=== PATIENT | female | born 1990 | race African-American/Black ===

== ENCOUNTER 2016-08-10 10:43 | Emergency (ER) | payer OTHER ==
[~2016-08-10] VITALS: Wt 81.6 kg
[~2016-08-10 10:43] MED LIST: ACYCLOVIR800 MG PO; ANAPROX DS550 MG PO; ATIVAN0.5 MG PO; AUGMENTIN 875875 MG PO; BIRTH CONTROL1 EACH; EXCEDRIN MIGRAI1 TA1 PO; IBU-6600 MG PO; IMITREX100 MG PO; KEFLEX500 MG PO; MOTRIN800 MG PO; PERCOCET 325 MG1 TA2 PO; ROBAXIN750 MG PO; VIBRAMYCIN100 MG PO; VICODIN 5/500 505 MG PO; ZOFRAN ODT4 MG SL
[2016-08-10] MEDS ORDERED: VISTARIL25 M2 PO (11:40)
== END 2016-08-10 11:44 | disposition home or self-care (01) ==
LOC: ED 10:43
DX: F41.9 Anxiety disorder, unspecified (principal); F17.200 Nicotine dependence, unspecified, uncomplicated; Z88.8 Allergy status to other drugs, medicaments and biological substances

== ENCOUNTER 2016-09-12 16:04 | Emergency (ER) | payer SELFPAY ==
[~2016-09-12 16:04] MED LIST changes: +VISTARIL25 M2 PO
[2016-09-12] MEDS ORDERED: Motrin,Rufen800 MG PO (17:43)
[2016-09-12] MEDS ORDERED: HYDROCODONE BIT1 T11 PO (17:43)
== END 2016-09-12 17:33 | disposition home or self-care (01) ==
LOC: ED 16:04
DX: S22.32XA Fracture of one rib, left side, initial encounter for closed fracture (principal); F17.200 Nicotine dependence, unspecified, uncomplicated; Z88.8 Allergy status to other drugs, medicaments and biological substances; Y08.89XA Assault by other specified means, initial encounter; Y93.89 Activity, other specified; Y92.9 Unspecified place or not applicable; Y99.9 Unspecified external cause status

== ENCOUNTER 2016-09-14 11:00 | Emergency (ER) | payer SELFPAY ==
[~2016-09-14] VITALS: Wt 80.7 kg
[~2016-09-14 11:00] MED LIST changes: +HYDROCODONE BIT1 T11 PO; +Motrin,Rufen800 MG PO
[2016-09-14] MEDS ORDERED: ULTRAM50 MG PO (12:13)
== END 2016-09-14 13:56 | disposition home or self-care (01) ==
LOC: ED 11:00
DX: S22.32XD Fracture of one rib, left side, subsequent encounter for fracture with routine healing (principal); G89.29 Other chronic pain; F17.200 Nicotine dependence, unspecified, uncomplicated; Z88.8 Allergy status to other drugs, medicaments and biological substances; X58.XXXD Exposure to other specified factors, subsequent encounter

== ENCOUNTER 2016-10-16 08:49 | Emergency (ER) | payer OTHER ==
[~2016-10-16] VITALS: Ht 170.1 cm; Wt 80.7 kg
[~2016-10-16 08:49] MED LIST changes: +ULTRAM50 MG PO
[2016-10-16 09:22] LABS: BILIRUBIN NEGATIVE (NEGATIVE); BLOOD TRACE-INTACT (NEGATIVE); CLARITY SL CLOUDY (CLEAR); COLOR YELLOW (YELLOW); GLUCOSE NEGATIVE (NEGATIVE); KETONE NEGATIVE (NEGATIVE); LEUKO ESTERASE TRACE (NEGATIVE); NITRITE NEGATIVE (NEGATIVE); PH 7.5 (5.0-9.0); PROTEIN NEGATIVE (NEGATIVE); SPECIFIC GRAVITY <= 1.005 (1.005-1.030); UROBILINOGEN 0.2 E.U./dl (0.2-1.0)
[2016-10-16 09:29] LABS: BACTERIA TRACE; URINE REFLEX COMMENT YES (NO)
[2016-10-16] MEDS ORDERED: DIFLUCAN150 MG PO (09:40)
[2016-10-16] MEDS ORDERED: BACTRIM DS 8001 TA1 PO (09:40)
== END 2016-10-16 09:52 | disposition home or self-care (01) ==
LOC: ED 08:49
PROVIDERS: Nurse Practitioner Family
DX: N39.0 Urinary tract infection, site not specified (principal); R31.9 Hematuria, unspecified; R03.0 Elevated blood-pressure reading, without diagnosis of hypertension; F17.200 Nicotine dependence, unspecified, uncomplicated; Z91.048 Other nonmedicinal substance allergy status

== ENCOUNTER 2017-03-23 21:29 | Emergency (ER) | payer OTHER ==
[~2017-03-23] VITALS: Ht 170.1 cm; Wt 71.2 kg
[~2017-03-23 21:29] MED LIST changes: +BACTRIM DS 8001 TA1 PO; +DIFLUCAN150 MG PO
[2017-03-23 22:18] LABS: BILIRUBIN NEGATIVE (NEGATIVE); BLOOD 2+ (NEGATIVE); CLARITY SL CLOUDY (CLEAR); COLOR YELLOW (YELLOW); GLUCOSE NEGATIVE (NEGATIVE); KETONE TRACE (NEGATIVE); LEUKO ESTERASE NEGATIVE (NEGATIVE); NITRITE NEGATIVE (NEGATIVE); PH 5.5 (5.0-9.0); SPECIFIC GRAVITY >= 1.030 (1.005-1.030); UROBILINOGEN 0.2 E.U./dl (0.2-1.0)
[2017-03-23 22:22] LABS: BASO % 0.4 % (0.0-1.0); EOS # 0.2 10*3/uL (0.0-0.4); EOS % 1.7 % (1.0-4.0); HEMATOCRIT 45.2 % (37.0-47.0); HEMOGLOBIN 15.6 g/dl (12.0-16.0); LYMPH # 3.7 10*3/uL (1.3-4.4); LYMPH % 34.8 % (27.0-41.0); MEAN CELL VOLUME 88.1 fl (81.0-99.0); MEAN CORPUSCULAR HGB 30.4 pg (27.0-31.0); MEAN CORPUSCULAR HGB CONC 34.5 g/dl (33.0-37.0); MEAN PLATELET VOLUME 9.1 fl (9.6-12.3); MONO # 0.9 10*3/uL (0.1-1.0); MONO % 8.7 % (3.0-9.0); NEUT # 5.8 10*3/uL (2.3-7.9); PLATELET COUNT AUTOMATED 233 10*3/uL (130-400); RED BLOOD COUNT 5.13 10*6/uL (4.10-5.10); RED CELL DISTRI WIDTH 12.7 % (0-14.5); WHITE BLOOD COUNT 10.7 10*3/uL (4.8-10.8)
[2017-03-23 22:24] LABS: BACTERIA TRACE; MUCOUS 2+
[2017-03-23 22:26] LABS: RBC 16-20 rbc/hpf (0-2)
[2017-03-23 22:40] LABS: ALKALINE PHOSPHATASE 99 U/L (45-117); BUN 12 mg/dl (7-24); CHLORIDE 106 mmol/L (98-107); CREATININE 0.81 mg/dL (0.55-1.02); LIPASE 179 U/L (73-393); POTASSIUM 3.9 mmol/L (3.5-5.1); SGOT/AST 6 IU/L (3-35); SGPT/ALT 14 U/L (12-78); SODIUM 141 mmol/L (136-145); TOTAL PROTEIN 7.8 gm/dL (6.4-8.2)
[2017-03-23] MEDS ORDERED: ZOFRAN ODT4 MG SL (23:01)
== END 2017-03-24 00:48 | disposition home or self-care (01) ==
LOC: ED 21:29
PROVIDERS: Nurse Practitioner Family
DX: R10.13 Epigastric pain (principal); Z88.8 Allergy status to other drugs, medicaments and biological substances

== ENCOUNTER 2017-04-05 22:02 | Emergency (ER) | payer OTHER ==
[~2017-04-05] VITALS: Ht 170.1 cm; Wt 71.7 kg
== END 2017-04-05 23:15 | disposition home or self-care (01) ==
LOC: ED 22:02
DX: R07.81 Pleurodynia (principal); F17.200 Nicotine dependence, unspecified, uncomplicated; Z79.899 Other long term (current) drug therapy; Z88.8 Allergy status to other drugs, medicaments and biological substances; Y08.89XA Assault by other specified means, initial encounter; Y93.89 Activity, other specified; Y92.89 Other specified places as the place of occurrence of the external cause; Y99.9 Unspecified external cause status

== ENCOUNTER 2017-10-19 17:30 | Emergency (ER) | payer OTHER ==
[~2017-10-19] VITALS: Ht 167.6 cm; Wt 72.6 kg
[2017-10-19] MEDS ORDERED: NAPROSYN500 MG PO (19:12)
[2017-10-19] MEDS ORDERED: CYCLOBENZAPRINE10 MG PO (19:12)
[2017-10-19] MEDS ORDERED: MEDROL DOSEPAK4 MG PO (19:12)
== END 2017-10-19 19:22 | disposition home or self-care (01) ==
LOC: ED 17:30
DX: S16.1XXA Strain of muscle, fascia and tendon at neck level, initial encounter (principal); Z88.8 Allergy status to other drugs, medicaments and biological substances; V89.2XXA Person injured in unspecified motor-vehicle accident, traffic, initial encounter; Y93.89 Activity, other specified; Y92.410 Unspecified street and highway as the place of occurrence of the external cause; Y99.8 Other external cause status

== ENCOUNTER 2017-12-12 20:30 | Emergency (ER) | payer OTHER ==
[~2017-12-12] VITALS: Ht 170.1 cm; Wt 68.9 kg
[~2017-12-12 20:30] MED LIST changes: +CYCLOBENZAPRINE10 MG PO; +MEDROL DOSEPAK4 MG PO; +NAPROSYN500 MG PO
[2017-12-12] MEDS ORDERED: PRENATAL ONE D1 EACH PO (20:39)
== END 2017-12-12 20:45 | disposition home or self-care (01) ==
LOC: ED 20:30
DX: Z32.01 Encounter for pregnancy test, result positive (principal); F17.200 Nicotine dependence, unspecified, uncomplicated

== ENCOUNTER 2018-01-05 11:31 | Emergency (ER) | payer OTHER ==
[~2018-01-05] VITALS: Ht 170.1 cm; Wt 70.3 kg
[~2018-01-05 11:31] MED LIST changes: +PRENATAL ONE D1 EACH PO
[2018-01-05 12:15] LABS: BILIRUBIN NEGATIVE (NEGATIVE); BLOOD NEGATIVE (NEGATIVE); CLARITY CLEAR (CLEAR); COLOR YELLOW (YELLOW); GLUCOSE NEGATIVE (NEGATIVE); KETONE NEGATIVE (NEGATIVE); UROBILINOGEN 0.2 E.U./dl (0.2-1.0)
[2018-01-05 12:16] LABS: LEUKO ESTERASE NEGATIVE (NEGATIVE); NITRITE NEGATIVE (NEGATIVE)
[2018-01-05 12:17] LABS: BASO % 0.4 % (0.0-1.0); EOS # 0.1 10*3/uL (0.0-0.4); HEMOGLOBIN 15.1 g/dl (12.0-16.0); LYMPH # 2.6 10*3/uL (1.3-4.4); MEAN CELL VOLUME 87.5 fl (81.0-99.0); MEAN CORPUSCULAR HGB CONC 34.3 g/dl (33.0-37.0); MEAN PLATELET VOLUME 8.8 fl (9.6-12.3); MONO # 0.5 10*3/uL (0.1-1.0); MONO % 6.7 % (3.0-9.0); NEUT % 55.6 % (47.0-73.0); PLATELET COUNT AUTOMATED 207 10*3/uL (130-400); RED BLOOD COUNT 5.03 10*6/uL (4.10-5.10); RED CELL DISTRI WIDTH 12.3 % (0-14.5); WHITE BLOOD COUNT 7.2 10*3/uL (4.8-10.8)
[2018-01-05 12:20] LABS: BACTERIA TRACE
[2018-01-05 12:33] LABS: ALBUMIN 3.6 gm/dl (3.1-4.5); ALKALINE PHOSPHATASE 73 U/L (45-117); BUN 5 mg/dl (7-24); CHLORIDE 106 mmol/L (98-107); CREATININE 0.58 mg/dL (0.55-1.02); POTASSIUM 4.3 mmol/L (3.5-5.1); SGOT/AST 10 IU/L (3-35); SGPT/ALT 16 U/L (12-78); SODIUM 140 mmol/L (136-145); TOTAL PROTEIN 7.5 gm/dL (6.4-8.2)
== END 2018-01-05 13:43 | disposition home or self-care (01) ==
LOC: ED 11:31
PROVIDERS: Nurse Practitioner Family
DX: O26.891 Other specified pregnancy related conditions, first trimester (principal); O99.331 Smoking (tobacco) complicating pregnancy, first trimester; R10.32 Left lower quadrant pain; Z91.048 Other nonmedicinal substance allergy status; Z79.899 Other long term (current) drug therapy; Z3A.01 Less than 8 weeks gestation of pregnancy

== ENCOUNTER 2018-03-13 15:28 | Emergency (ER) | payer OTHER ==
[~2018-03-13] VITALS: Ht 170.1 cm; Wt 74.4 kg
[2018-03-13 15:54] LABS: BILIRUBIN NEGATIVE (NEGATIVE); BLOOD 1+ (NEGATIVE); CLARITY SL CLOUDY (CLEAR); COLOR YELLOW (YELLOW); GLUCOSE NEGATIVE (NEGATIVE); KETONE TRACE (NEGATIVE); LEUKO ESTERASE NEGATIVE (NEGATIVE); NITRITE NEGATIVE (NEGATIVE); PH 5.5 (5.0-9.0); SPECIFIC GRAVITY >= 1.030 (1.005-1.030); UROBILINOGEN 0.2 E.U./dl (0.2-1.0)
[2018-03-13 16:10] LABS: BACTERIA 1+; EPITHELIAL CELLS TNTC; MUCOUS TRACE
== END 2018-03-13 16:57 | disposition home or self-care (01) ==
LOC: ED 15:28
PROVIDERS: Emergency Medicine
DX: O26.892 Other specified pregnancy related conditions, second trimester (principal); R10.2 Pelvic and perineal pain; R11.0 Nausea; Z3A.17 17 weeks gestation of pregnancy

== ENCOUNTER → 2018-04-13 | Outpatient (CLI) | payer OTHER | END | disposition home or self-care (01) | LOC: US 10:30 | DX: Z34.82 Encounter for supervision of other normal pregnancy, second trimester (principal); Z3A.21 21 weeks gestation of pregnancy ==

== ENCOUNTER 2018-05-07 18:42 | Emergency (ER) | payer OTHER ==
[~2018-05-07] VITALS: Ht 170.1 cm; Wt 74.8 kg
--- NOTE | ~2018-05-07 | EKG ---
[place], [place] ELECTROCARDIOGRAM REPORT NAME: CHARI HERNANDEZ UNIT #: [id number] ROOM: DOCTOR: EPIPHANY DRAFT REPORT BIRTHDATE: [birth year] [facility] Test Date: 2018-05-07 Test Time: 19:15:05 Pat Name: CHARI HERNANDEZ Department: ER Room: Gender: F [employer] Manager: Edis Rizzo : 1990 Requested By: ANTONIO CORONADO Order Number: [id number] Reading MD: Rod Carcamo MD Measurements Intervals [place] Rate: 103 P: 65 DE: 141 QRS: 13 QRSD: 91 T: 28 QT: 327 QTc: 428 Interpretive Statements Sinus tachycardia Left atrial enlargement Baseline wander in lead(s) V2 Electronically Signed On 05-08-2018 15:22:23 PST by Rod Carcamo MD CM:EKGRPT:ELECTROCARDIOGRAM REPORT 1522 ANTONIO LYNNE DRAFT REPORT ANTONIO CORONADO DO
[2018-05-07 19:43] LABS: BASO % 0.2 % (0.0-1.0); EOS # 0.1 10*3/uL (0.0-0.4); EOS % 0.5 % (1.0-4.0); HEMATOCRIT 39.1 % (37.0-47.0); HEMOGLOBIN 13.8 g/dl (12.0-16.0); LYMPH # 2.6 10*3/uL (1.3-4.4); LYMPH % 23.6 % (27.0-41.0); MEAN CELL VOLUME 89.1 fl (81.0-99.0); MEAN CORPUSCULAR HGB 31.4 pg (27.0-31.0); MEAN CORPUSCULAR HGB CONC 35.3 g/dl (33.0-37.0); MEAN PLATELET VOLUME 9.2 fl (9.6-12.3); MONO # 0.5 10*3/uL (0.1-1.0); MONO % 4.9 % (3.0-9.0); NEUT # 7.6 10*3/uL (2.3-7.9); PLATELET COUNT AUTOMATED 210 10*3/uL (130-400); RED BLOOD COUNT 4.39 10*6/uL (4.10-5.10); RED CELL DISTRI WIDTH 13.2 % (0-14.5); WHITE BLOOD COUNT 10.8 10*3/uL (4.8-10.8)
[2018-05-07 19:53] LABS: ALBUMIN 3.4 gm/dl (3.1-4.5); ALKALINE PHOSPHATASE 73 U/L (45-117); BUN 6 mg/dl (7-24); CHLORIDE 105 mmol/L (98-107); CREATININE 0.67 mg/dL (0.55-1.02); POTASSIUM 3.1 mmol/L (3.5-5.1); SGOT/AST 11 IU/L (3-35); SGPT/ALT 13 U/L (12-78); SODIUM 137 mmol/L (136-145); TOTAL PROTEIN 7.6 gm/dL (6.4-8.2)
[2018-05-07 19:55] LABS: BILIRUBIN NEGATIVE (NEGATIVE); BLOOD TRACE-INTACT (NEGATIVE); CLARITY SL CLOUDY (CLEAR); COLOR YELLOW (YELLOW); GLUCOSE NEGATIVE (NEGATIVE); KETONE NEGATIVE (NEGATIVE); LEUKO ESTERASE NEGATIVE (NEGATIVE); NITRITE NEGATIVE (NEGATIVE); SPECIFIC GRAVITY 1.015 (1.005-1.030); UROBILINOGEN 0.2 E.U./dl (0.2-1.0)
[2018-05-07 20:14] LABS: BACTERIA 1+; WBC 0-2 wbc/hpf (0-5)
== END 2018-05-07 21:15 | disposition short-term general hospital (02) ==
LOC: ED 18:42
PROVIDERS: Emergency Medicine
DX: O26.892 Other specified pregnancy related conditions, second trimester (principal); R55 Syncope and collapse; R42 Dizziness and giddiness; R11.0 Nausea; Z3A.25 25 weeks gestation of pregnancy

== ENCOUNTER → 2018-06-09 | Outpatient (CLI) | payer OTHER | END | disposition home or self-care (01) | LOC: US 10:30 | DX: Z34.92 Encounter for supervision of normal pregnancy, unspecified, second trimester (principal); Z3A.29 29 weeks gestation of pregnancy ==

== ENCOUNTER 2019-03-16 14:36 | Emergency (ER) | payer OTHER ==
[~2019-03-16] VITALS: Ht 170.1 cm; Wt 77.1 kg
[2019-03-16 15:13] LABS: BILIRUBIN NEGATIVE (NEGATIVE); BLOOD NEGATIVE (NEGATIVE); CLARITY CLEAR (CLEAR); COLOR YELLOW (YELLOW); GLUCOSE NEGATIVE (NEGATIVE); KETONE NEGATIVE (NEGATIVE); LEUKO ESTERASE NEGATIVE (NEGATIVE); NITRITE NEGATIVE (NEGATIVE); SPECIFIC GRAVITY <= 1.005 (1.005-1.030); UROBILINOGEN 0.2 E.U./dl (0.2-1.0)
[2019-03-16 15:29] LABS: BACTERIA TRACE; WBC 0-2 wbc/hpf (0-5)
== END 2019-03-16 16:35 | disposition home or self-care (01) ==
LOC: ED 14:36
PROVIDERS: Nurse Practitioner Family
DX: S16.1XXA Strain of muscle, fascia and tendon at neck level, initial encounter (principal); S09.90XA Unspecified injury of head, initial encounter; R51 Headache; M54.6 Pain in thoracic spine; R41.0 Disorientation, unspecified; V43.52XA Car driver injured in collision with other type car in traffic accident, initial encounter; Y93.89 Activity, other specified; Y92.89 Other specified places as the place of occurrence of the external cause; Y99.8 Other external cause status

== ENCOUNTER 2020-04-23 19:57 | Emergency (ER) | payer OTHER ==
[~2020-04-23] VITALS: Ht 167.6 cm; Wt 78.0 kg
== END 2020-04-23 21:59 | disposition home or self-care (01) ==
LOC: ED 19:57
DX: S22.32XA Fracture of one rib, left side, initial encounter for closed fracture (principal); F17.200 Nicotine dependence, unspecified, uncomplicated; X58.XXXA Exposure to other specified factors, initial encounter; Y93.89 Activity, other specified; Y92.89 Other specified places as the place of occurrence of the external cause; Y99.8 Other external cause status

== ENCOUNTER 2020-05-06 14:13 | Emergency (ER) | payer OTHER ==
[~2020-05-06] VITALS: Ht 165.1 cm; Wt 79.4 kg
[2020-05-06 15:33] LABS: BASO % 0.2 % (0.0-1.0); EOS % 0.1 % (1.0-4.0); HEMATOCRIT 48.8 % (37.0-47.0); LYMPH # 1.5 10*3/uL (1.3-4.4); LYMPH % 8.8 % (27.0-41.0); MEAN CELL VOLUME 88.2 fl (81.0-99.0); MEAN CORPUSCULAR HGB 29.3 pg (27.0-31.0); MEAN CORPUSCULAR HGB CONC 33.2 g/dl (33.0-37.0); MEAN PLATELET VOLUME 9.3 fl (9.6-12.3); MONO # 0.7 10*3/uL (0.1-1.0); MONO % 4.4 % (3.0-9.0); NEUT # 14.1 10*3/uL (2.3-7.9); NEUT % 85.9 % (47.0-73.0); PLATELET COUNT AUTOMATED 273 10*3/uL (130-400); RED BLOOD COUNT 5.53 10*6/uL (4.10-5.10); RED CELL DISTRI WIDTH 12.6 % (0-14.5); WHITE BLOOD COUNT 16.5 10*3/uL (4.8-10.8)
[2020-05-06 15:47] LABS: BILIRUBIN Negative (Negative); BLOOD 1+ (Negative); CLARITY Clear (Clear); COLOR Yellow (Yellow); GLUCOSE Negative (Negative); KETONE 3+ (Negative); LEUKO ESTERASE Negative (Negative); NITRITE Negative (Negative); SPECIFIC GRAVITY >= 1.030 (1.001-1.030); UROBILINOGEN 0.2 E.U./dl (0.0-1.0)
[2020-05-06 15:53] LABS: ALBUMIN 3.9 gm/dl (3.1-4.5); ALKALINE PHOSPHATASE 92 U/L (45-117); BUN 11 mg/dl (7-24); CHLORIDE 113 mmol/L (98-107); CREATININE 0.78 mg/dL (0.55-1.02); LIPASE 106 U/L (73-393); POTASSIUM 3.4 mmol/L (3.5-5.1); SGOT/AST 7 IU/L (3-35); SGPT/ALT 18 U/L (12-78); SODIUM 141 mmol/L (136-145); TOTAL PROTEIN 8.2 gm/dL (6.4-8.2)
[2020-05-06 16:11] LABS: BACTERIA 1+; EPITHELIAL CELLS 0-2; MUCOUS 2+; RBC 0-2 rbc/hpf (0-2); WBC 0-2 wbc/hpf (0-5)
[2020-05-06] MEDS ORDERED: CIPRO500 MG PO (18:49)
[2020-05-06] MEDS ORDERED: FLAGYL500 MG PO (18:49)
[2020-05-06] MEDS ORDERED: ZOFRAN4 MG PO (18:49)
== END 2020-05-06 19:03 | disposition home or self-care (01) ==
LOC: ED 14:13
PROVIDERS: Physician Assistant
DX: K52.9 Noninfective gastroenteritis and colitis, unspecified (principal); R11.2 Nausea with vomiting, unspecified; Z88.8 Allergy status to other drugs, medicaments and biological substances; Z79.899 Other long term (current) drug therapy

== ENCOUNTER → 2020-07-29 | Outpatient (CLI) | payer OTHER ==
[~2020-07-29] MED LIST changes: +CIPRO500 MG PO; +FLAGYL500 MG PO; +ZOFRAN4 MG PO
== END | disposition home or self-care (01) ==
LOC: US 12:51
PROVIDERS: ATTEND Nurse Practitioner Women's Health
DX: O43.891 Other placental disorders, first trimester (principal); Z3A.08 8 weeks gestation of pregnancy

== ENCOUNTER → 2020-08-08 | Outpatient (CLI) | payer OTHER | END | disposition home or self-care (01) | LOC: US 11:30 | PROVIDERS: ATTEND Nurse Practitioner Women's Health | DX: Z33.1 Pregnant state, incidental (principal) ==

== ENCOUNTER → 2020-08-21 | Outpatient (CLI) | payer OTHER | END | disposition home or self-care (01) | LOC: US 12:00 | PROVIDERS: ATTEND Nurse Practitioner Women's Health | DX: O02.1 Missed abortion (principal); N85.8 Other specified noninflammatory disorders of uterus ==

== ENCOUNTER 2023-06-22 10:10 | Emergency (ER) | payer OTHER ==
[~2023-06-22] VITALS: Ht 167.6 cm; Wt 70.8 kg
[2023-06-22] MEDS ORDERED: AMPHETAMINE SAL15 M1 PO (10:17)
[2023-06-22] MEDS ORDERED: TRAZODONE50 MG PO (10:17)
[2023-06-22] MEDS ORDERED: HYDROXYZINE PAM50 MG PO (10:18)
[2023-06-22] MEDS ORDERED: ESCITALOPRAM OX10 MG PO (10:18)
[2023-06-22] MEDS ORDERED: ARIPIPRAZOLE10 MG PO (10:18)
[2023-06-22] MEDS ORDERED: ACETAMINOPHEN 325 MG TAB PO ONE (10:40)
[2023-06-22] MEDS ORDERED: Motrin,Rufen800 MG PO (12:29)
[2023-06-22] MEDS ORDERED: CYCLOBENZAPRINE10 MG PO (12:29)
== END 2023-06-22 12:51 | disposition home or self-care (01) ==
LOC: ED 10:10
DX: S46.912A Strain of unspecified muscle, fascia and tendon at shoulder and upper arm level, left arm, initial encounter (principal); Z88.8 Allergy status to other drugs, medicaments and biological substances; Z98.890 Other specified postprocedural states; V89.2XXA Person injured in unspecified motor-vehicle accident, traffic, initial encounter; Y93.89 Activity, other specified; Y92.410 Unspecified street and highway as the place of occurrence of the external cause; Y99.8 Other external cause status